=== PATIENT | female | born 1980 | race Two or more races ===

== ENCOUNTER 2023-07-06 06:09 | Day surgery (SDC) | payer OTHER ==
[2023-07-04 09:34] LABS: HEMATOCRIT 37.9 % (36.0-45.00); HEMOGLOBIN 12.9 g/dL (12.0-15.00); MEAN CELL VOLUME 89.5 fL (80.00-100.00); MEAN CORPUSCULAR HEMOGLOBIN 30.4 pg (27.00-32.0); PLATELET COUNT 381 K/uL (150-450); RED BLOOD COUNT 4.24 M/uL (4.00-6.00); RED CELL DISTRIBUTION WIDTH 13.4 % (11.5-14.5)
[2023-07-04 09:39] LABS: PH,URINE 5.5 (5.0-8.0); URINE APPEARANCE Clear; URINE BILIRRUBIN Negative (NEGATIVE); URINE BLOOD Negative; URINE COLOR Yellow; URINE GLUCOSE Negative (NEGATIVE); URINE LEUKOCYTE Trace; URINE NITRATE Negative; URINE PROTEIN Negative (NEGATIVE); URINE UROBILINOGEN 0.2 E.U./dl
[2023-07-04 09:45] LABS: URINE BACTERIA 188.9 uL (0.0-1933); URINE EPITHELIAL CELLS 13.7 uL (0.0-38.8); URINE RBC 4.3 uL (0.0-20.8); URINE WBC 15.7 uL (0.0-23.2)
[2023-07-04 09:56] LABS: INR 0.97; PROTHROMBIN TIME 10.2 SECONDS (9.0-11.5)
[2023-07-04 09:59] LABS: ALBUMIN 3.8 gm/dL (3.4-5.0); BILIRUBIN TOTAL 0.54 mg/dL (0.3-1.2); CALCIUM 9.3 mg/dL (8.5-10.1); CREATININE SERUM 0.72 mg/dL (0.55-1.02); GFR 88.83; GLOBULINA 3.7 G/DL (2.4-3.5); POTASSIUM 4.23 mEq/L (3.5-5.1); TOTAL PROTEIN 7.5 gm/dL (6.4-8.2)
[2023-07-06] MEDS ORDERED: GENTAMICIN SULFATE 40 MG/ML VIAL ONE (10:12)
[2023-07-06] MEDS ORDERED: BUPIVACAINE HCL/PF 0.5% 30ML ML ONE (10:13)
[2023-07-06] MEDS ORDERED: CEFAZOLIN SODIUM 1,000 MG VIAL ONE (10:14)
[2023-07-06] MEDS ORDERED: POVIDONE-IODINE SCRUB 118 ML BOTT TOP ONE ×2 (10:14→13:30)
[2023-07-06] MEDS ORDERED: POVIDONE-IODINE 118 ML BOTT TOP ONE ×3 (10:14→13:30)
[2023-07-06] MEDS ORDERED: CLINDAMYCIN PHOSPHATE 150 MG/ML (900mg) ONE (10:29)
[2023-07-06] MEDS ORDERED: CLINDAMYCIN PHOSPHATE 150 MG/ML (900mg) IV SCH (13:30)
[2023-07-06] MEDS ORDERED: GENTAMICIN SULFATE 40 MG/ML VIAL IM ONE (13:30)
[2023-07-06] MEDS ORDERED: BUPIVACAINE HCL/PF 0.5% 30ML ML IJ ONE (13:30)
[2023-07-06] MEDS ORDERED: CEFAZOLIN SODIUM 1,000 MG VIAL IM ONE (13:30)
== END 2023-07-06 18:05 | disposition home or self-care (01) ==
LOC: CIR.AMB 06:09
PROVIDERS: ATTEND Surgery
DX: D48.62 Neoplasm of uncertain behavior of left breast (principal); N60.32 Fibrosclerosis of left breast; N61.0 Mastitis without abscess; R59.0 Localized enlarged lymph nodes; Z90.12 Acquired absence of left breast and nipple; N62 Hypertrophy of breast; Z88.8 Allergy status to other drugs, medicaments and biological substances

== ENCOUNTER 2024-02-01 05:16 | Day surgery (SDC) | payer OTHER ==
[2024-01-29 09:14] LABS: HEMATOCRIT 35.8 % (36.0-45.00); MEAN CELL VOLUME 88.8 fL (80.00-100.00); MEAN CORPUSCULAR HEMOGLOBIN 29.7 pg (27.00-32.0); MEAN CORPUSCULAR HGB CONC 33.4 g/dl (32.0-36.0); PLATELET COUNT 397 K/uL (150-450); RED BLOOD COUNT 4.03 M/uL (4.00-6.00); RED CELL DISTRIBUTION WIDTH 14.1 % (11.5-14.5)
[2024-01-29 09:27] LABS: URINE APPEARANCE Clear; URINE BILIRRUBIN Negative (NEGATIVE); URINE BLOOD Negative; URINE COLOR Yellow; URINE GLUCOSE Negative (NEGATIVE); URINE KETONE Trace (NEGATIVE); URINE LEUKOCYTE Small; URINE NITRATE Negative; URINE PROTEIN Negative (NEGATIVE); URINE UROBILINOGEN 0.2 E.U./dl
[2024-01-29 09:31] LABS: URINE BACTERIA 1863.3 uL (0.0-1933); URINE EPITHELIAL CELLS 39.7 uL (0.0-38.8); URINE WBC 33.2 uL (0.0-23.2)
[2024-01-29 09:33] LABS: INR 0.95; PARTIAL THROMBOPLASTIN TIME 30.1 SECONDS (22.0-34.0); PROTHROMBIN TIME 10.4 SECONDS (9.0-11.5)
[2024-01-29 09:48] LABS: CALCIUM 9.3 mg/dL (8.5-10.1); CREATININE SERUM 0.72 mg/dL (0.55-1.02); GFR 88.41; POTASSIUM 4.11 mEq/L (3.5-5.1)
[2024-02-01] MEDS ORDERED: MORPHINE SULFATE 4 MG/ML VIAL IV ONE (10:10)
[2024-02-01] MEDS ORDERED: MORPHINE SULFATE 4 MG/ML VIAL IV PRN (10:45)
[2024-02-01] MEDS ORDERED: ONDANSETRON HCL 2 MG/ML VIAL IV PRN (10:45)
== END 2024-02-01 13:00 | disposition home or self-care (01) ==
LOC: CIR.AMB 05:16
PROVIDERS: ATTEND Plastic Surgery
DX: D48.62 Neoplasm of uncertain behavior of left breast (principal); N65.1 Disproportion of reconstructed breast; Z90.12 Acquired absence of left breast and nipple; Z91.09 Other allergy status, other than to drugs and biological substances; Z88.6 Allergy status to analgesic agent; I10 Essential (primary) hypertension; J45.909 Unspecified asthma, uncomplicated

== ENCOUNTER 2024-02-13 14:10 | Inpatient (IN) | payer OTHER ==
[~2024-02-13] VITALS: Ht 165.1 cm; Wt 97.5 kg
[2024-02-13] MEDS ORDERED: PROAIR RESPICL90 MCG IH (14:47)
[2024-02-13] MEDS ORDERED: NAPR500T14 PO (14:47)
[2024-02-13] MEDS ORDERED: PRILOSEC OTC20 MG PO (14:48)
[2024-02-13] MEDS ORDERED: TRELEGY ELLIPT1 EAC1 IH (14:48)
[2024-02-13] MEDS ORDERED: IMITREX50 MG PO (14:48)
[2024-02-13] MEDS ORDERED: COZAAR25 MG PO (14:48)
[2024-02-13] MEDS ORDERED: VITAMIN D310 MC1 PO (14:49)
[2024-02-13] MEDS ORDERED: ATIVAN1 M1 PO (14:49)
[2024-02-13] MEDS ORDERED: SEROQUEL300 MG PO (14:49)
[2024-02-13] MEDS ORDERED: RESTORIL30 M1 PO (14:49)
[2024-02-13] MEDS ORDERED: EFFEXOR XR75 MG PO (14:49)
--- NOTE | 2024-02-13 14:49 | NUR ---
PTE ALERTA Y ORIENTADA X3 REFIRE JERZY SIDO OPERADA POR EL DR. XAVIER GAMBINO EL 02/01/24. AL MOMENTO DE TRIAGE PTE PRESENTA FIEBRE, CONGESTION NASAL Y DOLOR DE AZAM Y EN CUERPO, ADEMAS DE DOLOR EN SENO LAYNE EL CUAL FUE OPERADO. SE MIDEN SV Y SE UBICA.
[2024-02-13] MEDS ORDERED: 0.9 % SODIUM CHLORIDE 500 ML IV ONE (15:45)
--- NOTE | 2024-02-13 15:50 | NUR ---
SE ORIENTA A PACIENTE SOBRE [place] MEDICO, REFIERE ENTENDER. SE REALIZAN MUESTRAS DE LABORATORIO BAJO MEDIDAS ASEPTICAS. SE ADMINISTRA IV'S NATALIA ORDEN MEDICA. PACIENTE MANEJADA POR MR. LITTLE. PENDIENTE RE-EVALUACION MEDICA.
[2024-02-13 15:59] LABS: HEMATOCRIT 36.9 % (36.0-45.00); HEMOGLOBIN 12.5 g/dL (12.0-15.00); MEAN CELL VOLUME 88.7 fL (80.00-100.00); MEAN CORPUSCULAR HGB CONC 33.8 g/dl (32.0-36.0); PLATELET COUNT 411 K/uL (150-450); RED BLOOD COUNT 4.16 M/uL (4.00-6.00)
[2024-02-13 16:11] LABS: URINE APPEARANCE Clear; URINE BILIRRUBIN Negative (NEGATIVE); URINE BLOOD Negative; URINE COLOR Yellow; URINE GLUCOSE Negative (NEGATIVE); URINE KETONE Trace (NEGATIVE); URINE LEUKOCYTE Trace; URINE NITRATE Negative; URINE PROTEIN Negative (NEGATIVE); URINE UROBILINOGEN 0.2 E.U./dl
[2024-02-13 16:13] LABS: URINE BACTERIA 385.5 uL (0.0-1933); URINE RBC 9.4 uL (0.0-20.8); URINE WBC 16.8 uL (0.0-23.2)
[2024-02-13 16:21] LABS: ALBUMIN 3.8 gm/dL (3.4-5.0); BILIRUBIN TOTAL 0.54 mg/dL (0.3-1.2); CALCIUM 9.3 mg/dL (8.5-10.1); CREATININE SERUM 0.74 mg/dL (0.55-1.02); GFR 85.65; GLOBULINA 4.7 G/DL (2.4-3.5); POTASSIUM 3.98 mEq/L (3.5-5.1); TOTAL PROTEIN 8.5 gm/dL (6.4-8.2)
[2024-02-13] MEDS ORDERED: KETOROLAC TROMETHAMINE 30 MG VIAL IV ONE (17:00)
[2024-02-13] MEDS ORDERED: VANCOMYCIN HCL 1,000 MG VIAL IV ONE (17:00)
[2024-02-13] MEDS ORDERED: CEFTRIAXONE SODIUM 2,000 MG in 0.9 % SODIUM CHLORIDE 100 ML IV SCH (19:41)
[2024-02-13] MEDS ORDERED: MEPERIDINE HCL/PF 25 MG/ML VIAL IM PRN (19:45)
[2024-02-13] MEDS ORDERED: 0.9 % SODIUM CHLORIDE 1,000 ML IV ONE (19:45)
[2024-02-13] MEDS ORDERED: ACETAMINOPHEN 500 MG GEL..CAP PO PRN (19:45)
[2024-02-13] MEDS ORDERED: 0.9 % SODIUM CHLORIDE 1,000 ML IV SCH (19:45)
[2024-02-13] MEDS ORDERED: TEMAZEPAM 15 MG CAPSULE PO SCH (21:00)
[2024-02-13 22:00] LABS: INR 1.04; PARTIAL THROMBOPLASTIN TIME 31.4 SECONDS (22.0-34.0); PROTHROMBIN TIME 11.3 SECONDS (9.0-11.5)
[2024-02-14] MEDS ORDERED: VANCOMYCIN HCL 1,000 MG VIAL IV SCH (05:00)
[2024-02-14 08:00] VITALS: BP 92/65; O2SAT 96
[2024-02-14] MEDS ORDERED: ENOXAPARIN SODIUM 40 MG/0.4 ML SYRINGE SUBCUTANEO SCH (09:00)
[2024-02-14] MEDS ORDERED: QUETIAPINE FUMARATE 100 MG TABLET PO SCH ×2 (09:00→21:00)
[2024-02-14] MEDS ORDERED: FAMOTIDINE/PF 20 MG in 0.9 % SODIUM CHLORIDE 8 ML IV PUSH SCH (09:00)
[2024-02-14] MEDS ORDERED: LOSARTAN POTASSIUM 25 MG TABLET PO SCH (09:00)
[2024-02-14 16:02] VITALS: BP 86/51; O2SAT 98
[2024-02-14] MEDS ORDERED: OxyCODONE HCL/APAP UD (PERCOCET) PO PRN (18:15)
[2024-02-15 03:02] VITALS: BP 95/54; O2SAT 95
[2024-02-15] MEDS ORDERED: VANCOMYCIN HCL 5 MG/ML REDILUIDO IV SCH (05:00)
[2024-02-15 07:30] VITALS: BP 125/71; O2SAT 98
[2024-02-15 08:32] LABS: HEMATOCRIT 30.2 % (36.0-45.00); MEAN CELL VOLUME 90.2 fL (80.00-100.00); MEAN CORPUSCULAR HGB CONC 33.2 g/dl (32.0-36.0); PLATELET COUNT 359 K/uL (150-450); RED BLOOD COUNT 3.35 M/uL (4.00-6.00); RED CELL DISTRIBUTION WIDTH 14.2 % (11.5-14.5)
[2024-02-15 08:52] LABS: PH,URINE 5.5 (5.0-8.0); URINE APPEARANCE Cloudy; URINE BILIRRUBIN Negative (NEGATIVE); URINE BLOOD Negative; URINE COLOR Yellow; URINE GLUCOSE Negative (NEGATIVE); URINE KETONE Negative (NEGATIVE); URINE LEUKOCYTE Small; URINE NITRATE Negative; URINE PROTEIN Negative (NEGATIVE); URINE UROBILINOGEN 0.2 E.U./dl
[2024-02-15 08:56] LABS: URINE BACTERIA 362.8 uL (0.0-1933); URINE EPITHELIAL CELLS 103.5 uL (0.0-38.8); URINE RBC 3.6 uL (0.0-20.8); URINE WBC 126.7 uL (0.0-23.2)
[2024-02-15] MEDS ORDERED: LACTOBACILLUS ACIDOPHILUS 1 CAP CAP PO SCH (09:00)
[2024-02-15] MEDS ORDERED: LORazepam 1 MG TABLET PO SCH (09:00)
[2024-02-15 09:20] LABS: URINE CAST 0.15 uL (0.0-1.40)
[2024-02-15 09:34] LABS: ALBUMIN 2.8 gm/dL (3.4-5.0); BILIRUBIN TOTAL 0.26 mg/dL (0.3-1.2); CREATININE SERUM 0.62 mg/dL (0.55-1.02); GFR 105.06; GLOBULINA 3.5 G/DL (2.4-3.5); POTASSIUM 4.38 mEq/L (3.5-5.1); TOTAL PROTEIN 6.3 gm/dL (6.4-8.2)
[2024-02-15 10:16] VITALS: BP 125/71; O2SAT 98
[2024-02-15 17:29] VITALS: BP 109/79; O2SAT 99
[2024-02-16 00:15] VITALS: BP 105/69; O2SAT 98
[2024-02-16 10:15] VITALS: BP 114/75; O2SAT 99
[2024-02-16] MEDS ORDERED: POLYETHYLENE GLYCOL 3350 17 GM BLIST.PACK PO STA (11:34)
[2024-02-16] MEDS ORDERED: MEPERIDINE HCL/PF 25 MG/ML VIAL IM PRN (12:00)
[2024-02-16 16:00] VITALS: BP 129/90; O2SAT 96
[2024-02-16] MEDS ORDERED: POLYETHYLENE GLYCOL 3350 17 GM BLIST.PACK PO NR (21:00)
[2024-02-17 00:39] VITALS: BP 113/80; O2SAT 98
[2024-02-17 08:44] VITALS: BP 118/85; O2SAT 98
[2024-02-17] MEDS ORDERED: OxyCODONE HCL/APAP UD (PERCOCET) PO PRN (09:15)
[2024-02-17 18:46] VITALS: BP 118/71; O2SAT 98
[2024-02-18 00:50] VITALS: BP 113/74; O2SAT 97
[2024-02-18 08:00] VITALS: BP 168/90; O2SAT 96
[2024-02-18] MEDS ORDERED: LEVALBUTEROL HCL 0.63 MG/3 ML SOLUTION IH SCH (17:00)
[2024-02-18] MEDS ORDERED: BENZONATATE 100 MG CAPSULE PO SCH (17:00)
[2024-02-18 17:28] VITALS: BP 126/77; O2SAT 99
[2024-02-18] MEDS ORDERED: LORATADINE 10 MG TABLET PO SCH (21:00)
[2024-02-18] MEDS ORDERED: FLUTICASONE PROPIONATE 50 MCG SPRAY NASAL SCH (21:00)
[2024-02-18] MEDS ORDERED: FAMOtidine 20 MG TABLET PO SCH (21:00)
[2024-02-19 00:45] VITALS: BP 130/93; O2SAT 96
[2024-02-19 07:52] LABS: HEMATOCRIT 27.7 % (36.0-45.00); HEMOGLOBIN 9.4 g/dL (12.0-15.00); MEAN CELL VOLUME 89.5 fL (80.00-100.00); MEAN CORPUSCULAR HEMOGLOBIN 30.4 pg (27.00-32.0); MEAN CORPUSCULAR HGB CONC 33.9 g/dl (32.0-36.0); PLATELET COUNT 321 K/uL (150-450); RED CELL DISTRIBUTION WIDTH 14.2 % (11.5-14.5)
[2024-02-19 08:45] LABS: ALBUMIN 2.8 gm/dL (3.4-5.0); BILIRUBIN TOTAL 0.39 mg/dL (0.3-1.2); CALCIUM 8.2 mg/dL (8.5-10.1); CREATININE SERUM 0.73 mg/dL (0.55-1.02); GFR 87.01; GLOBULINA 3.3 G/DL (2.4-3.5); POTASSIUM 3.91 mEq/L (3.5-5.1); TOTAL PROTEIN 6.1 gm/dL (6.4-8.2)
[2024-02-19 08:48] LABS: C-REACTIVE PROTEIN 6.27 MG/DL (0.00-0.29)
[2024-02-19 09:31] VITALS: BP 136/69; O2SAT 97
[2024-02-19] MEDS ORDERED: OxyCODONE HCL/APAP UD (PERCOCET) PO PRN (15:45)
[2024-02-19] MEDS ORDERED: FUROsemide 20 MG/2 ML VIAL IV NR (16:00)
[2024-02-19] MEDS ORDERED: LEVALBUTEROL HCL 0.63 MG/3 ML SOLUTION IH SCH ×2 (17:00→21:00)
[2024-02-19 17:02] VITALS: BP 142/96; O2SAT 99
[2024-02-19] MEDS ORDERED: METHYLPREDNISOLONE SOD SUCC 40 MG VIAL IV SCH (21:00)
[2024-02-19 23:30] VITALS: BP 107/56; O2SAT 95
[2024-02-20 08:00] VITALS: BP 115/69; O2SAT 97
[2024-02-20] MEDS ORDERED: FUROsemide 20 MG/2 ML VIAL IV SCH (09:00)
[2024-02-20 17:22] VITALS: BP 147/78; O2SAT 98
[2024-02-21] VITALS: BP 112/59; O2SAT 100
[2024-02-21 08:31] VITALS: BP 112/84; O2SAT 99
== END 2024-02-21 19:09 | disposition home or self-care (01) | DRG 872 ==
LOC: ER 14:12 → SEC-K 20:50 → SURH 02-14 17:32
PROVIDERS: General Practice; Internal Medicine Infectious Disease; Nurse Practitioner Family; ADMIT Internal Medicine; ATTEND Internal Medicine
PROC: BH41ZZZ Ultrasonography of Left Breast (ICD-10-PCS; principal; 2024-02-13)
PROC: 4A12X4Z Monitoring of Cardiac Electrical Activity, External Approach (ICD-10-PCS; 2024-02-14)
PROC: BH41ZZZ Ultrasonography of Left Breast (ICD-10-PCS; 2024-02-15)
PROC: BW24ZZZ Computerized Tomography (CT Scan) of Chest and Abdomen (ICD-10-PCS; 2024-02-20)
DX: A41.9 Sepsis, unspecified organism (principal); J90 Pleural effusion, not elsewhere classified; J98.11 Atelectasis; R65.10 Systemic inflammatory response syndrome (SIRS) of non-infectious origin without acute organ dysfunction; N61.0 Mastitis without abscess; D48.62 Neoplasm of uncertain behavior of left breast